=== PATIENT | female | born 1985 | race Caucasian/White ===

== ENCOUNTER 2016-10-17 13:19 | Observation (INO) | payer OTHER ==
[2016-10-17] MEDS ORDERED: LABETALOL HCL 5 MG/ML VIAL IV ONE ×2 (13:22→15:00)
[2016-10-17] MEDS ORDERED: LABETALOL HCL 100 MG TABLET PO SCH (14:00)
[2016-10-17 14:04] LABS: Hematocrit 33.2 % (37.0-47.0); Hemoglobin 11.5 gm/dL (12.5-16.0); Mean Corpuscular Hemoglobin 31.2 pg (27-31); Mean Corpuscular Hgb Conc 34.6 g/dl (32-36); Mean Platelet Volume 11.1 fl (6.0-9.5); Neutrophil # 6.1 K/mm3 (1.3-6.0); Neutrophil % 66.2 % (42-75.0); Platelet Count 232 K/mm3 (150-450); Red Blood Count 3.69 M/mm3 (4.2-5.4); Red Cell Distribution Width 12.5 % (11.5-14.0); White Blood Count 9.3 K/mm3 (4.0-10.5)
[2016-10-17 14:19] LABS: Albumin * 2.2 gm/dl (3.4-5.0); Anion Gap 14.5 mmol/L (6.8-13.8); BUN/Creatinine Ratio 10.6 (9.0-21.6); Bilirubin, Total 0.2 mg/dL (0.0-1.1); Calcium * 8.9 mg/dL (7.9-10.9); Carbon Dioxide 22.6 mmol/L (24-32.6); Potassium 4.1 mmol/L (3.4-4.6); Total Protein 5.9 gm/dL (6.2-8.2)
[2016-10-17 14:54] LABS: Random Urine Total Protein 10.8 mg/dL (0-12)
[2016-10-17] MEDS ORDERED: RINGERS SOLUTION,LACTATED 1,000 ML IV ONE (16:43)
[2016-10-17] MEDS ORDERED: diphenhydrAMINE HCL 50 MG/ML VIAL IV ONE (23:12)
[2016-10-17] MEDS: METOCLOPRAMIDE HCL 5 MG/ML VIAL IV PRN ×2 (23:27→23:44)
[2016-10-18] MEDS: METOCLOPRAMIDE HCL 5 MG/ML VIAL IV PRN (00:04)
[2016-10-18] MEDS ORDERED: LABETALOL HCL 100 MG TABLET PO SCH (02:00)
[2016-10-18 03:08] VITALS: BP 148/88
== END 2016-10-18 03:00 | disposition home or self-care (01) ==
LOC: OBCLINIC 13:19 → OB 18:40
PROVIDERS: ADMIT Obstetrics & Gynecology; ATTEND Obstetrics & Gynecology
DX: O13.3 Gestational [pregnancy-induced] hypertension without significant proteinuria, third trimester (principal); Z3A.35 35 weeks gestation of pregnancy; E03.9 Hypothyroidism, unspecified; O98.813 Other maternal infectious and parasitic diseases complicating pregnancy, third trimester; B95.1 Streptococcus, group B, as the cause of diseases classified elsewhere
CPT/HCPCS: 36415; 59025; 80053; 82570; 84156; 85025; 87081; 96374; 96375; 96376; G0378

== ENCOUNTER 2016-10-18 22:49 | Inpatient (IN) | payer OTHER ==
[2016-10-18] MEDS ORDERED: BETAMETH ACET/BETAMET SOD PHOS 6 MG/ML VIAL IM ONE (22:58)
[2016-10-18] MEDS ORDERED: CALCIUM GLUCONATE 4.65 MEQ/10 ML VIAL IV PRN (22:59)
[2016-10-18] MEDS ORDERED: MAGNESIUM SULFATE IN WATER 50 ML, MAGNESIUM SULFATE IN WATER 50 ML IV ONE ×2 (22:59)
[2016-10-18] MEDS ORDERED: MAGNESIUM SULFATE IN WATER 1,000 ML IV SCH (23:00)
[2016-10-18] MEDS ORDERED: LABETALOL HCL 5 MG/ML VIAL IV STA (23:11)
[2016-10-18] MEDS ORDERED: LABETALOL HCL 100 MG TABLET ONE (23:17)
[2016-10-19] MEDS ORDERED: LABETALOL HCL 5 MG/ML VIAL IV STA
[2016-10-19] MEDS ORDERED: LABETALOL HCL 100 MG TABLET ONE
[2016-10-19] MEDS ORDERED: LABETALOL HCL 100 MG TABLET PO SCH
[2016-10-19 00:01] VITALS: BP 176/93
== END 2016-10-19 00:10 | disposition short-term general hospital (02) | DRG 782 ==
LOC: OB 22:49
PROVIDERS: ADMIT Obstetrics & Gynecology; ATTEND Obstetrics & Gynecology
DX: O13.3 Gestational [pregnancy-induced] hypertension without significant proteinuria, third trimester (principal); O99.280 Endocrine, nutritional and metabolic diseases complicating pregnancy, unspecified trimester; E03.9 Hypothyroidism, unspecified; Z3A.35 35 weeks gestation of pregnancy

== ENCOUNTER 2020-01-01 07:18 | Inpatient (IN) ==
[2020-01-01] MEDS ORDERED: RINGER'S SOLUTION,LACTATED 1,000 ML IV ONE (07:28)
[2020-01-01 09:08] LABS: Cocaine Ur Negative (NEGATIVE); Urine Barbiturate Negative (NEGATIVE); Urine Benzodiazepines Negative (NEGATIVE); Urine Opiates Negative (NEGATIVE); Urine PCP Negative (NEGATIVE); Urine THC Negative (NEGATIVE)
[2020-01-01] MEDS ORDERED: Oxytocin/Ringers Lactate 20 UNITS/1,000 ML BAG IV ONE (09:45)
[2020-01-01] MEDS ORDERED: BUPIVACAINE HCL/PF 10 ML VIAL ONE (09:46)
[2020-01-01] MEDS ORDERED: PHENYLEPHRINE HCL 10 MG/ML AMPUL ONE (09:46)
[2020-01-01] MEDS: DEXTROSE 5%-LACTATED RINGERS 1,000 ML IV PRN ×3 (09:57→15:55)
--- NOTE | 2020-01-01 10:46 | ANES ---
Anesthesia Pre Procedure Eval Vitals/Labs: Last Vital Signs Temp 35.7 C L 01/01/20 07:44 Pulse 89 01/01/20 07:44 Resp 20 01/01/20 07:44 BP 137/77 01/01/20 07:44 Pulse Ox 96 01/01/20 07:44 HOME MEDICATIONS fluoxetine 20 mg capsule 20 mg PO DAILY #30 cap 09/18/19 [Last Taken 12/31/19] aspirin 81 mg chewable tablet 81 mg PO DAILY 09/30/19 [Last Taken 12/29/19] nebivolol 10 mg tablet 10 mg PO DAILY #90 tab 10/09/19 [Last Taken 12/31/19] albuterol sulfate 90 mcg/actuation aerosol inhaler See Rx Instructions IH Q4H PRN #8.5 g 12/10/19 [Last Taken Unknown] ferrous sulfate 325 mg (65 mg iron) tablet,delayed release 325 mg PO DAILY #30 tab 12/11/19 [Last Taken 12/31/19] dextroamphetamine-amphetamine 30 mg tablet See Rx Instructions .ROUTE .COMPLEX #75 tab 12/13/19 [Last Taken Unknown] Vits96/Iron Fum/Folic [ S] 1 tab PO DAILY 12/25/19 [Last Taken 12/31/19] Allergies/Adverse Reactions: Allergies Allergy/AdvReac Type Severity Reaction Status Date / Time codeine Allergy Unknown Swelling Verified 01/01/20 07:30 of Throat - Planned Procedure Planned Procedure: version and flash induction Medication List Reviewed:: Yes Allergies Verified: Yes Medical History (Last Reviewed 01/01/20 @ 10:02 by Triston Peterson CRNA) URI with cough and congestion (Acute) negative Covid test 12/07/19 Hypertension (Chronic) Hypothyroid (Chronic) Late care complicating in second trimester (Acute) 17w2d by 2nd trimester u/s. History of delivery, currently (Chronic) iatrogenic 35 wk delivery due to severe preeclampsia History of pre-eclampsia (Chronic) Anemia (Resolved) Onset Date: ~2016 with pregnancies Carpal tunnel syndrome, bilateral (Chronic) Onset Date: 02/08/19 Left shoulder pain (Chronic) Onset Date: 08/20/18 Hypertension Morbid obesity Onset Date: Unknown Tachycardia Hypothyroidism Onset Date: 12/2014 Abnormal Pap smear of cervix Onset Date: ~2005 Allergic rhinitis Onset Date: ~2014 B12 deficiency Onset Date: ~2013 Blighted ovum Onset Date: 11/02/15 2016 & 2020 Bronchitis Onset Date: 05/02/13 Constipation Onset Date: Unknown De Quervain thyroiditis Onset Date: Unknown Easy bruising Onset Date: 11/12/13 Fatigue Galactorrhea Onset Date: 11/12/13 Gestational hypertension Onset Date: 11/09/16 Gestational hypertension Onset Date: 09/26/16 Insect bite of upper arm with local reaction Onset Date: 09/07/17 Left shoulder pain Onset Date: Unknown Numbness and tingling in both hands (Resolved) PCB (post coital bleeding) Onset Date: ~2013 Pelvic pain in female Onset Date: Unknown Pre-eclampsia Onset Date: 09/2016 Premature delivery Onset Date: 10/20/16 @ 35 weeks Sinusitis Onset Date: ~1989 Tenosynovitis, de Quervain (Resolved) Bilateral Vitiligo Onset Date: 01/07/14 Surgical History (Last Reviewed 01/01/20 @ 10:03 by Triston Peterson CRNA) Elbow fracture Onset Date: ~1993 fracture thru growth plate/external fixator H/O hand surgery Onset Date: ~1993 broken hand History of tonsillectomy Onset Date: ~1997 [place] teeth extracted Onset Date: ~2005 actually had 2 sets of wisdom teeth -both sets extracted Family History (Last Reviewed 01/01/20 @ 10:03 by Triston Peterson CRNA) Mother Leonor Richardson infection Tachycardia Arrhythmia Myasthenia gravis Grandmother Arrhythmia maternal Brother Tachycardia Grandfather Tachycardia paternal - Family Anesthesia History Family History:: no untoward family reactions to anesthesia, no familial bleeding tendencies, no family history of clotting disorders, no family history of premature - Airway/Neck/Teeth Within Normal Limits:: Yes Teeth Condition: intact Neck Exam: full range of motion Mallampatti Score: 2 Thyromental (T-M) distance: > 6 cm Mandibulo Hyoid distance: > 3 cm - Respiratory Respiratory Physical: lungs clear Smoking Status: Former smoker - quit many years ago Sleep Apnea by current assessment: No Discussed Risks/Treatment of STEPHANIE: No - Cardiovascular Cardiac History: hypertension Tolerate Activity: Fair Heart Sounds: S1 & S2, Regular - Gastrointestinal NPO since: 2400 - Anesthesia Assessment and Plan ASA Class: PS, II Anesthesia Type Plan: Spinal - Combination spinal epidural for possible section (failed version) possible labor (successful version), Epidural
--- NOTE | 2020-01-01 10:55 | HP ---
Chief Complaint - Chief Complaint Date of Service: 01/01/20 Time of Service: 08:45 Chief Complaint: ECV with induction of labor, possible c/s. History of Present Illness: 34 yo at 37w4d admitted to L&D for ECV with induction of labor, possible c/s due to poor growth with cord dopplers at upper limits of normal. This complicated by anemia, anxiety, ADHD, breech presentation, CHTN on meds (well controlled), hypothyroid, late care (17wks), fetus with poor growth, elevated cord dopplers, and b/l club feet. Prior complicated by severe preeclampsia with delivery at 35 weeks and baby with GBS sepsis. Rh negative Rubella immune Prior with GBS sepsis Medical History (Last Reviewed 01/01/20 @ 10:43 by Jacob Ordoñez DO) URI with cough and congestion (Acute) negative Covid test 12/07/19 Hypertension (Chronic) Hypothyroid (Chronic) Late care complicating in second trimester (Acute) 17w2d by 2nd trimester u/s. History of delivery, currently (Chronic) iatrogenic 35 wk delivery due to severe preeclampsia History of pre-eclampsia (Chronic) Anemia (Resolved) Onset Date: ~2016 with pregnancies Carpal tunnel syndrome, bilateral (Chronic) Onset Date: 02/08/19 Left shoulder pain (Chronic) Onset Date: 08/20/18 Hypertension Morbid obesity Onset Date: Unknown Tachycardia Hypothyroidism Onset Date: 12/2014 Abnormal Pap smear of cervix Onset Date: ~2005 Allergic rhinitis Onset Date: ~2014 B12 deficiency Onset Date: ~2013 Blighted ovum Onset Date: 11/02/152015 & 2020 Bronchitis Onset Date: 05/02/13 Constipation Onset Date: Unknown De Quervain thyroiditis Onset Date: Unknown Easy bruising Onset Date: 11/12/13 Fatigue Galactorrhea Onset Date: 11/12/13 Gestational hypertension Onset Date: 11/09/16 Gestational hypertension Onset Date: 09/26/16 Insect bite of upper arm with local reaction Onset Date: 09/07/17 Left shoulder pain Onset Date: Unknown Numbness and tingling in both hands (Resolved) PCB (post coital bleeding) Onset Date: ~2013 Pelvic pain in female Onset Date: Unknown Pre-eclampsia Onset Date: 09/2016 Premature delivery Onset Date: 10/20/16 @ 35 weeks Sinusitis Onset Date: ~1989 Tenosynovitis, de Quervain (Resolved) Bilateral Vitiligo Onset Date: 01/07/14 Surgical History: Surgical History (Last Reviewed 01/01/20 @ 10:43 by Jacob Ordoñez DO) Elbow fracture Onset Date: ~1993 fracture thru growth plate/external fixator H/O hand surgery Onset Date: ~1993 broken hand History of tonsillectomy Onset Date: ~1997 [place] teeth extracted Onset Date: ~2005 actually had 2 sets of wisdom teeth -both sets extracted Family History: Family History (Last Reviewed 01/01/20 @ 10:43 by Jacob Ordoñez DO) Mother Myasthenia gravis Arrhythmia Tachycardia Leonor Richardson infection Grandmother Arrhythmia maternal Brother Tachycardia Grandfather Tachycardia paternal Social History: (Last Reviewed 01/01/20 @ 10:43 by Jacob Ordoñez DO) Social History: Marital status: household members: spouse current occupational status: employed current occupation: IT Highest education level completed: Associate degree: academi Service: No Tobacco: Smoking Status: Former smoker Alcohol: alcohol intake: current alcohol intake frequency: holiday/special occasion Substance Use: substance use type: does not use Dietary Habits: caffeine: Yes Type: coffee, carbonated beverages Exercise: Physical activity type: none Review Of Systems (GEN) - Review of Systems Generalized/Overall Review: Present: No Symptoms Reported EENTM: Present: No Symptoms Reported Respiratory: Present: No Symptoms Reported Cardiac: Present: No Symptoms Reported Abdominal: Present: No Symptoms Reported Genitourinary: Present: No Symptoms Reported Musculoskeletal: Present: No Symptoms Reported Neurological: Present: No Symptoms Reported Skin: Present: No Symptoms Reported Endocrine: Present: No Symptoms Reported Allergies/Adverse Reactions: Allergies Allergy/AdvReac Type Severity Reaction Status Date / Time codeine Allergy Unknown Swelling Verified 01/01/20 07:30 of Throat Home Medications: HOME MEDICATIONS fluoxetine 20 mg capsule 20 mg PO DAILY #30 cap 09/18/19 [Last Taken 12/31/19] aspirin 81 mg chewable tablet 81 mg PO DAILY 09/30/19 [Last Taken 12/29/19] nebivolol 10 mg tablet 10 mg PO DAILY #90 tab 10/09/19 [Last Taken 12/31/19] albuterol sulfate 90 mcg/actuation aerosol inhaler See Rx Instructions IH Q4H AL N #8.5 g 12/10/19 [Last Taken Unknown] ferrous sulfate 325 mg (65 mg iron) tablet,delayed release 325 mg PO DAILY #30 tab 12/11/19 [Last Taken 12/31/19] dextroamphetamine-amphetamine 30 mg tablet See Rx Instructions .ROUTE .COMPLEX #75 tab 12/13/19 [Last Taken Unknown] Vits96/Iron Fum/Folic [ S] 1 tab PO DAILY 12/25/19 [Last Taken 12/31/19] Exam - Exam Vital Signs: Vital Signs - Last Taken Temp 35.7 C L 01/01/20 07:44 Pulse 89 01/01/20 07:44 Resp 20 01/01/20 07:44 BP 137/77 01/01/20 07:44 Pulse Ox 96 01/01/20 07:44 Constitutional: Present: Alert, Oriented x3, Cooperative, No distress ENT Exam: Present: hearing grossly normal Neck: Present: non-tender, trachea midline. Absent: thyromegaly Back Exam: Present: no CVA tenderness Breasts: Present: Exam deferred Respiratory: Present: lungs clear, no respiratory distress Cardiovascular/Chest: Present: normal peripheral pulses, regular rate, rhythm Abdomen: Present: soft, no rebound tenderness, other - gravid. Absent: tender /Rectal: Present: Exam deferred Extremity: Present: no pedal edema, no calf tenderness Skin Exam: Present: normal color, warm/dry, no cyanosis Lymphatic: Present: no adenopathy Neurologic: Present: alert, normal mood/affect Appearance: Present: appropriate appearance, appropriate insight Eye contact: Present: cooperative Thoughts: Present: normal thought pattern, normal mood /affect - breech presentation Diagnostic Studies: Laboratory Results Urine Opiates Screen Negative (NEGATIVE) 01/01/20 07:15 Barbiturate Screen Negative (NEGATIVE) 01/01/20 07:15 Ur Phencyclidine Scrn Negative (NEGATIVE) 01/01/20 07:15 Urine Amphetamine Negative (NEGATIVE) 01/01/20 07:15 U Benzodiazepines Scrn Negative (NEGATIVE) 01/01/20 07:15 Urine Cocaine Screen Negative (NEGATIVE) 01/01/20 07:15 Urine Marijuana (THC) Negative (NEGATIVE) 01/01/20 07:15 Assessment/Plan - Assessment/Plan (1) Hypertension Assessment: Admit for ECV with induction of labor, proceed with c/s if unsuccessful with version. Problem: Chronic Qualifiers: Hypertension type: essential hypertension Qualified Code(s): I10 - Essential (primary) hypertension (2) Hypothyroid Problem: Chronic Qualifiers: Hypothyroidism type: acquired Qualified Code(s): E03.9 - Hypothyroidism, unspecified (3) Late care complicating in second trimester Problem: Acute (4) History of delivery, currently Problem: Chronic (5) History of pre-eclampsia Problem: Chronic (6) Anemia Problem: Chronic Qualifiers: Anemia type: iron deficiency Iron deficiency anemia type: inadequate dietary iron intake Qualified Code(s): D50.8 - Other iron deficiency anemias (7) Hx maternal GBS (group B streptococcus) affected , Problem: Acute
[2020-01-01] MEDS: RINGER'S SOLUTION,LACTATED 1,000 ML IV PRN ×2 (11:00→12:00)
[2020-01-01] MEDS ORDERED: ceFAZolin SODIUM 1 GM VIAL ONE (11:09)
[2020-01-01] MEDS ORDERED: DEXTROSE 5%-LACTATED RINGERS 1,000 ML IV PRN (12:32)
[2020-01-01] MEDS ORDERED: ONDANSETRON 4 MG TAB.RAPDIS PO PRN (12:32)
--- NOTE | 2020-01-01 12:40 | ANES ---
Post Anesthesia Discharge - Transfer of Care Transfer of Care handoff given to nurse: Yes - Discharge from PACU Discharge from PACU when meets criteria: Yes - Comfortable and BP stable
--- NOTE | 2020-01-01 12:43 | PROC NOTE ---
ED Procedures - Additional Procedures Progress: Procedure: External cephalic version Technique: Attempt was made to do external cephalic version at bedside but patient could not tolerate the discomfort so she was moved to the OR for spinal with preparations for section. After adequate spinal/epidural and ane sthesia obtained and position confirmed with bedside ultrasound, the fetus was rotated in a clockwise position. After reaching about 90% of the way the baby rolled back with the head up in the maternal right upper quadrant. heart tones were monitored throughout the procedure with ultrasound and remained reassuring pre, during, and post procedure. Second attempt at rotating the baby was successful. Patient remained in recovery for approximately 1 hour due to hypotensive episodes from the spinal. Once these resolved the patient was transferred back to labor and delivery for management of induction of labor.
--- NOTE | 2020-01-01 13:26 | ANES ---
Post Anesthesia Assessment - Vital Signs Vitals: Last Vital Signs Temp 35.7 C L 01/01/20 07:44 Pulse 89 01/01/20 07:44 Resp 20 01/01/20 07:44 BP 137/77 01/01/20 07:44 Pulse Ox 96 01/01/20 07:44 Airway Patency: Normal - Mental Status Level Of Consciousness: Awake, Alert, Appropriate - Pain Level Pain Score: 0 - N/V Assessment Nausea/Vomiting Presence: None Dehydration:: No
--- NOTE | 2020-01-01 13:29 | ANES ---
Anesthesia Procedure Note Procedure Note: ANESTHESIA PROCEDURE NOTE Date of Procedure: 01/01/2020 Time of procedure: 11:10 AM. Performed by: MANAN Vega CRNA, MSN Thermal Cutter Helper: Loli Ellis RN. Preprocedure diagnosis: Active labor, breech presentation. Post procedure diagnosis: Same. Procedure: Combination spinal epidural for version, epidural for potential post version labor. Indications: Unable to tolerate version attempts, active labor and possible C- section. Findings: See below. Details of the procedure: The patient was placed on the side of the bed in sitting positionand prepped with DuraPrep then draped in a sterile fashion. Lidocaine 1% was infiltrated to the skin and subcutaneous tissues at the level of the L3-4 interspace. An 18-gauge Touhy needle was used to approach the epidural space with loss of resistance technique. Once loss of resistance was achieved a 27-gauge spinal needle was passed through the epidural needle and CSF was contacted. After CSF returned, 20 mcg of fentanyl was injected in the spinal needle was removed the epidural catheter was then threaded approximately 4 cm in the epidural needle was removed. The catheter was taped in place and after careful aspiration 3 mL of 1.5% lidocaine with 1-200,000 epinephrine was injected without change in maternal heart rate or sensorium. Ms. Vicente was then placed supine in left lateral tilt. EBL: Minimal. Fluids: N/A. Specimen: N/A. Post procedure condition: The patient tolerated the procedure well with good relief. No complications were noted. Thank you for this consultation. Triston Peterson CRNA, ARNP, MSN
[2020-01-01] MEDS: OXYTOCIN/0.9 % SODIUM CHLORIDE 30 UNITS/500 ML BAG IV ONE (13:51)
[2020-01-01] MEDS: PENICILLIN G POTASSIUM 2.5 MILLIONUNT in DEXTROSE 5 % IN WATER 100 ML IV SCH ×6 (15:26→23:31)
--- NOTE | 2020-01-01 15:36 | PN ---
Progess Note - Interim Date: 01/01/20 Time: 15:35 Narrative: 01/01/20 15:35 Called by nurse to assess patient for significant movement. Concern for reverting to breech presentation. Bedside ultrasound performed showing the vertex deep in the pelvis. heart tones are 120s with moderate variability and good accelerations, no decelerations. As of 0 Pitocin had not yet been started. Plan to start Pitocin at 2 milliunits/min and increase per protocol.
[2020-01-01] MEDS ORDERED: MISOPROSTOL 100 MCG TABLET ONE (17:37)
[2020-01-01] MEDS: MISOPROSTOL 100 MCG TABLET VG PRN (17:57)
--- NOTE | 2020-01-01 18:10 | PN ---
Progess Note - Interim Date: 01/01/20 Time: 18:07 Narrative: 01/01/20 18:07 Patient not feeling her contractions Vital signs stable. Cytotec 25 mcg placed vaginally at around 1800 FHT: 130 baseline, reassuring contractions irregular q 1-4 min Cervix: Fingertip/60/-3 Impression: Intrauterine at 37-4/7 weeks status post external cephalic version with induction of labor due to chronic hypertension with poor growth and elevated cord Dopplers. Plan: Continue induction of labor
[2020-01-02] MEDS: MISOPROSTOL 100 MCG TABLET VG PRN ×2 (00:01→05:47)
[2020-01-02] MEDS: PENICILLIN G POTASSIUM 2.5 MILLIONUNT in DEXTROSE 5 % IN WATER 100 ML IV SCH ×10 (03:34→21:03)
[2020-01-02] MEDS ORDERED: ceFAZolin SODIUM 1 GM VIAL IV PRN (06:00)
--- NOTE | 2020-01-02 08:34 | PN ---
Progess Note - Interim Date: 01/02/20 Time: 08:31 Narrative: 01/02/20 08:31 Patient denying contractions. Vital signs stable. Status post Cytotec 2 doses (last dose at 6 AM) FHT: 120 baseline, reassuring contractions irregular Cervix: 1/50/-3 at 6 AM. Impression: Intrauterine at 37-5/7 weeks induction of labor for chronic hypertension with poor growth and elevated cord Dopplers. Status post successful external cephalic version. Position confirmed this morning with ultrasound. Plan: We will start Pitocin at 10 AM this morning. Insert cervical Cronin bulb.
[2020-01-02] MEDS ORDERED: ONDANSETRON HCL/PF 2 MG/ML VIAL IV PRN (10:31)
[2020-01-02] MEDS ORDERED: BUPIVACAINE HCL/0.9 % NACL/PF 250 ML EP PRN (10:31)
[2020-01-02] MEDS ORDERED: NALOXONE HCL 1 MG/1 ML SYRG IV PRN (10:31)
[2020-01-02] MEDS: RINGER'S SOLUTION,LACTATED 1,000 ML IV PRN (10:40)
[2020-01-02] MEDS ORDERED: BUPIVACAINE HCL/PF 30 ML VIAL EP SCH (10:45)
[2020-01-02] MEDS: DEXTROSE 5%-LACTATED RINGERS 1,000 ML IV PRN (11:43)
--- NOTE | 2020-01-02 13:04 | PN ---
Progess Note - Interim Date: 01/02/20 Time: 13:02 Narrative: 01/02/20 13:02 Patient comfortable with epidural Vital signs stable. FHT: 120 baseline, reassuring contractions q 2-3 min Cervix: 3-4/60/ballotable, Cronin bulb out in vagina Impression: Intrauterine at 37-5/7 weeks induction of labor for chronic hypertension with poor growth and elevated cord Dopplers Plan: We will add Pitocin and AROM if needed.
[2020-01-02] MEDS: OXYTOCIN/0.9 % SODIUM CHLORIDE 30 UNITS/500 ML BAG IV ONE (13:30)
--- NOTE | 2020-01-02 17:08 | PN ---
Progess Note - Interim Date: 01/02/20 Time: 17:06 Narrative: 01/02/20 17:06 Patient comfortable with epidural Vital signs stable. Pitocin at 8 mu/min. FHT: 120 baseline, reassuring contractions q 2-3 min Cervix: 7/80/-3, AROM-clear Impression: Intrauterine at 37-5/7 weeks induction of labor for chronic hypertension with poor growth and elevated cord Dopplers. Progressing well. Difficulty assessing frequency and intensity of contractions. Plan: IUPC placed. Anticipate normal spontaneous vaginal delivery within the next couple hours.
[2020-01-02] MEDS ORDERED: SENNOSIDES 8.6 MG TABLET PO PRN (22:02)
[2020-01-02] MEDS ORDERED: GLYCERIN/WITCH HAZEL LEAF 40 APPL BOX TP PRN (22:02)
[2020-01-02] MEDS ORDERED: BENZOCAINE/MENTHOL 81 SPRAY CAN TP PRN (22:02)
[2020-01-02] MEDS ORDERED: OXYTOCIN/0.9 % SODIUM CHLORIDE 30 UNITS/500 ML BAG IV ONE (22:02)
[2020-01-02] MEDS ORDERED: ALBUTEROL SULFATE 200 PUFF INHALER IH PRN (22:02)
[2020-01-02] MEDS ORDERED: ACETAMINOPHEN 500 MG TABLET PO PRN (22:02)
[2020-01-02] MEDS ORDERED: HYDROCORTISONE 30 APPL TUBE TP PRN (22:02)
[2020-01-02] MEDS ORDERED: BISACODYL 10 MG SUPP.RECT RC PRN (22:02)
--- NOTE | 2020-01-02 22:06 | OR ---
Operative Report - Dictated Report Narrative: Spontaneous vaginal delivery of viable female at 2126 on 01/02/2020 with Apgars 8 and 9, weighing 2567 g in SIERRA position with foot cord x1. Cord clamping delayed approximately 1 minute Placenta delivered complete, intact, with three vessel cord Estimated blood loss: Less than 50 ml Anesthesia: Epidural Lacerations: Right mitchel-urethral/labial abrasion-no repair necessary. History for History for Definition: * The number of deliveries resulting in a live the patient experienced prior to current hospitalization * The previous delivery of live twins or any live multiple gestation is considered one live event. *If primagravida or nulliparous is documented select zero for the number of previous live births. Live Events: Live Events: 1
[2020-01-03] MEDS: IBUPROFEN 800 MG TABLET PO PRN ×3 (06:10→20:38)
[2020-01-03] MEDS: DEXTROAMPHETAMINE/AMPHETAMINE 30 MG TABLET PO SCH ×2 (09:00)
[2020-01-03] MEDS ORDERED: FLUoxetine HCL 20 MG CAPSULE PO SCH ×2 (09:00→21:00)
[2020-01-03] MEDS ORDERED: PRENATAL VITS96/IRON FUM/FOLIC 1 TAB TABLET PO SCH (09:00)
[2020-01-03] MEDS: FERROUS SULFATE 325 MG TABLET PO SCH (09:40)
[2020-01-03] MEDS: DOCUSATE SODIUM 100 MG CAPSULE PO SCH ×2 (09:40→20:39)
--- NOTE | 2020-01-03 09:40 | PN ---
Subjective - Date and Time Seen Date: 01/03/20 Time: 09:38 Objective - Vitals Vitals: Last Vital Signs Temp 36.9 C 01/03/20 06:45 Pulse 74 01/03/20 06:45 Resp 18 01/03/20 06:45 BP 119/67 01/03/20 06:45 Pulse Ox 99 01/03/20 06:45 Patient denies complaints. Breast-feeding Lochia wnl abdomen - soft, nontender Uterus -firm, at umbilicus - 1 No calf tenderness Impression: day #1 - s/p spontaneous vaginal delivery. Chronic hypertension-stable. Plan: Continue routine care. Resume all home meds except baby aspirin. Cauti Physician Documentation - Urinary Catheter Management Urethral (Cronin) Date of Insertion: 01/01/20 Time of Insertion: 11:15 Date of Removal: 01/01/20 Time of Removal: 21:00 Assessment/Plan - Problems/Diagnosis (1) Hypertension Problem: Chronic Qualifiers: Hypertension type: essential hypertension Qualified Code(s): I10 - Essential (primary) hypertension (2) Hypothyroid Problem: Chronic Qualifiers: Hypothyroidism type: acquired Qualified Code(s): E03.9 - Hypothyroidism, unspecified (3) Late care complicating in second trimester Problem: Acute (4) History of delivery, currently Problem: Chronic (5) History of pre-eclampsia Problem: Chronic (6) Anemia Problem: Chronic Qualifiers: Anemia type: iron deficiency Iron deficiency anemia type: inadequate dietary iron intake Qualified Code(s): D50.8 - Other iron deficiency anemias (7) Hx maternal GBS (group B streptococcus) affected , Problem: Acute
[2020-01-03] MEDS ORDERED: RHO(D) IMMUNE GLOBULIN 1,500 UNIT SYRINGE IM ONE (11:28)
[2020-01-03] MEDS ORDERED: BYSTOLIC 10MG PO SCH (21:00)
[2020-01-04] MEDS: IBUPROFEN 800 MG TABLET PO PRN ×2 (05:00→13:12)
[2020-01-04 07:01] VITALS: BP 132/77
[2020-01-04] MEDS ORDERED: PRENATAL VITS96/IRON FUM/FOLIC 1 TAB TABLET PO SCH (09:00)
[2020-01-04] MEDS: DEXTROAMPHETAMINE/AMPHETAMINE 30 MG TABLET PO SCH ×2 (09:37→12:00)
[2020-01-04] MEDS: FERROUS SULFATE 325 MG TABLET PO SCH (09:47)
[2020-01-04] MEDS: DOCUSATE SODIUM 100 MG CAPSULE PO SCH (09:47)
--- NOTE | 2020-01-04 14:45 | PN ---
Subjective - Date and Time Seen Date: 01/04/20 Time: 14:44 Objective - Vitals Vitals: Last Vital Signs Temp 36.7 C 01/04/20 06:45 Pulse 72 01/04/20 06:45 Resp 18 01/04/20 06:45 BP 132/77 01/04/20 06:45 Pulse Ox 99 01/04/20 06:45 Patient denies complaints. Lochia wnl abdomen - soft, nontender Uterus -firm, at umbilicus - 2 No calf tenderness Impression: day #2 - s/p spontaneous vaginal delivery. History of severe preeclampsia. Plan: Routine discharge instructions. Monitor blood pressure twice a day at home and call for signs/symptoms of severe features of preeclampsia. Cauti Physician Documentation - Urinary Catheter Management Urethral (Cronin) Date of Insertion: 01/01/20 Time of Insertion: 11:15 Date of Removal: 01/01/20 Time of Removal: 21:00 Assessment/Plan - Problems/Diagnosis (1) Hypertension Problem: Chronic Qualifiers: Hypertension type: essential hypertension Qualified Code(s): I10 - Essential (primary) hypertension (2) Hypothyroid Problem: Chronic Qualifiers: Hypothyroidism type: acquired Qualified Code(s): E03.9 - Hypothyroidism, unspecified (3) Late care complicating in second trimester Problem: Acute (4) History of delivery, currently Problem: Chronic (5) History of pre-eclampsia Problem: Chronic (6) Anemia Problem: Chronic Qualifiers: Anemia type: iron deficiency Iron deficiency anemia type: inadequate dietary iron intake Qualified Code(s): D50.8 - Other iron deficiency anemias (7) Hx maternal GBS (group B streptococcus) affected , Problem: Acute
== END 2020-01-04 15:00 | disposition home or self-care (01) | DRG 806 ==
LOC: OB 07:18
PROVIDERS: ADMIT Obstetrics & Gynecology; ATTEND Obstetrics & Gynecology